=== PATIENT | female | born 1980 | race Caucasian/White ===

== ENCOUNTER 2020-06-16 00:34 | Emergency (ER) | payer OTHER ==
[~2020-06-16] VITALS: Ht 165.1 cm; Wt 84.1 kg
[2020-06-16] MEDS ORDERED: MORPHINE SULFATE 10 MG/ML SYRINGE. SQ ONE (01:30)
--- NOTE | 2020-06-16 01:33 | PHYS DOC ---
Past History Past Medical History: Hypothyroid, Migraines, Other Additional Past Medical Histor: Eduar disease Past Surgical History: , Other Additional Past Surgical Histo: uterine ablation Alcohol Use: Occasionally General Adult EDM: Chief Complaint: FOOT INJURY PAIN HPI: HPI: "..I really don't know what happened.. I was carrying a basket of laundry... And tripped or something... It was on the ground and his left foot was really hurting bad... 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 Pt.complaints of injury right. hand and lt lower leg and foot. Patient has obvious ecchymosis and swelling to left foot and ankle. Pain and left midfoot. Some laxity on anterior draw. Distal capillary refill is equal to right foot. Patient has a contusion to right hand. Patient denies other injury. Patient is normally healthy. 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 No recent travel. Review of Systems: Review of Systems: Constitutional: Denies fever or chills Eyes: Denies change in visual acuity HENT: Denies nasal congestion or sore throat Respiratory: Denies cough or shortness of breath Cardiovascular: Denies chest pain or edema GI: Denies abdominal pain, nausea, vomiting, bloody stools or diarrhea : Denies dysuria Musculoskeletal: Complains of right hand and left foot and ankle pain Integument: Denies rash Neurologic: Denies headache, focal weakness or sensory changes Endocrine: Denies polyuria or polydipsia Lymphatic: Denies swollen glands Psychiatric: Denies depression or anxiety Family History: Family History: Noncontributory to presentation Current Medications: Current Meds: Current Medications Medications (Trade) Dose Ordered Sig/C[place]etano Start Time Stop Time Status Last Admin Dose Admin Morphine Sulfate (Morphine 10mg Syringe) 10 mg 1X ONCE 06/16/20 01:30 06/16/20 01:31 06/16/20 01:22 10 MG Allergies: Allergies: Allergies Coded Allergies Type Severity Reaction Last Updated Verified No Known Drug Allergies 06/16/20 No Physical Exam: PE: Constitutional: Well developed, well nourished, moderate acute distress, non- toxic appearance. [] HENT: Normocephalic, atraumatic, bilateral external ears normal, oropharynx moist, no oral exudates, nose normal. [] Eyes: PERRLA, EOMI, conjunctiva normal, no discharge. [] Neck: Normal range of motion, no tenderness, supple, no stridor. [] Cardiovascular:Heart rate regular rhythm, no murmur [] Lungs & Thorax: Bilateral breath sounds clear to auscultation [] Abdomen: Bowel sounds normal, soft, no tenderness, no masses, no pulsatile masses. [] Skin: Warm, dry, no erythema, no rash. [] Back: No tenderness, no CVA tenderness. [] Extremities: No tenderness, no cyanosis, no clubbing, ROM intact, no edema. Except findings of ecchymosis in right hand swelling. Except findings and left ankle and foot as per HPI Neurologic: Alert and oriented X 3, normal motor function, normal sensory function, no focal deficits noted. [] Psychologic: Affect anxious, judgement normal, mood normal. [] Current Patient Data: Vital Signs: Vital Signs Date Time Temp Pulse Resp B/P (MAP) Pulse Ox O2 Delivery O2 Flow Rate FiO2 06/16/20 01:22 18 Room Air 06/16/20 00:35 97.8 71 148/76 (100 100 EKG: EKG: [] Radiology/Procedures: Radiology/Procedures: [][place] [address] IMAGING REPORT Signed PATIENT: NICOLE VILA ACCOUNT: [id number] : 1980 LOCATION: ER AGE: 40 SEX: F EXAM STATUS: PRE ER ORD. PHYSICIAN: CAL PRICE MD REASON: Injury from fall on stairs, left lower leg, ankle and foot pain PROCEDURE: TIBIA FIBULA LEFT Left tibia fibula AP lateral x-rays HISTORY: Fall, left leg pain. FINDINGS: No fracture. No dislocation. No lytic or sclerotic bone lesion. Soft tissues unremarkable. IMPRESSION: Normal exam of the left tibia fibula. Left ankle x-rays 3 views HISTORY: Fall, left ankle pain. FINDINGS: Small cortical irregularity of the lateral talus on the AP view may represent small acute fracture fractures. Ankle mortise intact. No dislocation. No talus osteochondral lesion. IMPRESSION: Acute traumatic small cortical chip fractures of the lateral talus. Left foot x-rays 3 views HISTORY: Fall, left foot pain. FINDINGS: Cortical regularity of the lateral cortex of the anterior talus adjacent to cuboid may be small acute traumatic fractures on the AP view. Remainder of the foot is intact. No dislocation. Dorsal forefoot soft tissue edema. IMPRESSION: Small acute traumatic chip fractures of the lateral cortex of the anterior talus. Otherwise the foot is intact. Electronically signed by: Roddy Hylton MD (06/16/2020 1:47 AM) [place] DICTATED AND SIGNED BY: RODDY HYLTON MD DATE: 06/16/20 0143 CC: SHRUTI RODRIGEZ MD; CAL PRICE MD ~MTH0 0 Heart Score: Risk Factors: Risk Factors: DM, Current or recent (<one month) smoker, HTN, HLP, family history of CAD, obesity. Risk Scores: Score 0 - 3: 2.5% MACE over next 6 weeks - Discharge Home Score 4 - 6: 20.3% MACE over next 6 weeks - Admit for Clinical Observation Score 7 - 10: 72.7% MACE over next 6 weeks - Early Invasive Strategies Course & Med Decision Making: Course & Med Decision Making Pertinent Labs and Imaging studies reviewed. (See chart for details) Ice, splint, crutches, elevation, and Tylenol and ibuprofen for pain. Follow-up primary care. Marked pain may take Vicoprofen. Follow-up with orthopedics [facility] [phone] Currently no crutches available prescription written Impression: 1. Ankle and Foot sprain Lt. 2. Avulsion fx Lt.Talus 3. Contusion right hand. [] Dragon Disclaimer: Dragon Disclaimer: This electronic medical record was generated, in whole or in part, using a voice recognition dictation system. Departure Departure: Referrals: SHRUTI RODRIGEZ MD (PCP) Scripts Hydrocodone/Ibuprofen (HYDROCODONE-IBUPROFEN 7.5-200 ) 1 Each Tablet 1 TAB PO PRN Q6HRS PRN for PAIN, #30 TAB 0 Refills Prov: CAL PRICE MD 06/16/20 Dragon Disclaimer This chart was dictated in whole or in part using Voice Recognition software in a busy, high-work load, and often noisy Emergency Department environment. It may contain unintended and wholly unrecognized errors or omissions. CAL PRICE MD Jun 16, 2020 01:33
--- NOTE | 2020-06-16 01:50 | RAD ---
Left tibia fibula AP lateral x-rays HISTORY: Fall, left leg pain. FINDINGS: No fracture. No dislocation. No lytic or sclerotic bone lesion. Soft tissues unremarkable. IMPRESSION: Normal exam of the left tibia fibula. Left ankle x-rays 3 views HISTORY: Fall, left ankle pain. FINDINGS: Small cortical irregularity of the lateral talus on the AP view may represent small acute f racture fractures. Ankle mortise intact. No dislocation. No talus osteochondral lesion. IMPRESSION: Acute traumatic small cortical chip fractures of the lateral talus. Left foot x-rays 3 views HISTORY: Fall, left foot pain. FINDINGS: Cortical regularity of the lateral cortex of the anterior talus adjacent to cuboid may be s mall acute traumatic fractures on the AP view. Remainder of the foot is intact. No dislocation. Dorsa l forefoot soft tissue edema. IMPRESSION: Small acute traumatic chip fractures of the lateral cortex of the anterior talus. Otherwi se the foot is intact. Electronically signed by: Alfredo Hylton MD (06/16/2020 1:47 AM) [facility]
[2020-06-16] MEDS ORDERED: HYDR-1179 PO (02:02)
[2020-06-16 02:55] VITALS: BP 134/68
== END 2020-06-16 02:58 | disposition home or self-care (01) ==
LOC: ER 00:34
DX: S92.152A Displaced avulsion fracture (chip fracture) of left talus, initial encounter for closed fracture (principal); S93.602A Unspecified sprain of left foot, initial encounter; S93.402A Sprain of unspecified ligament of left ankle, initial encounter; S60.221A Contusion of right hand, initial encounter; E03.9 Hypothyroidism, unspecified; G43.909 Migraine, unspecified, not intractable, without status migrainosus; W01.0XXA Fall on same level from slipping, tripping and stumbling without subsequent striking against object, initial encounter; Y93.89 Activity, other specified; Y92.89 Other specified places as the place of occurrence of the external cause; Y99.8 Other external cause status
CPT/HCPCS: 29515; 73590; 73610; 73630; 99284; J2270

== ENCOUNTER → 2020-07-26 | Outpatient (CLI) | payer OTHER ==
[~2020-07-26] MED LIST: HYDR-1179 PO
--- NOTE | 2020-07-26 17:47 | RAD ---
PROCEDURE: XR FOOT_LEFT 3 VIEWS STUDY DATE: 07/26/2020 CLINICAL INDICATION / HISTORY: Reason: LEFT FOOT PAIN / Spl. Instructions: / History: . TECHNIQUE: AP, lateral and oblique views of the left foot. COMPARISON: None FINDINGS: No fracture or dislocation is identified. Previously reported tiny acute chip fracture of t he lateral talus is not as apparent on this examination and may have since healed. The bone density i s normal. The joint space widths are maintained, and there are no erosions to suggest an inflammatory arthropathy. No soft tissue abnormality is seen. IMPRESSION: No acute osseous abnormality. Electronically signed by: Joan Diaz MD (07/26/2020 5:45 PM) [id number]
== END ==
LOC: DXRAD 13:32
PROVIDERS: ATTEND Physician Assistant
DX: M79.672 Pain in left foot (principal)
CPT/HCPCS: 73630

== ENCOUNTER → 2020-08-26 | Outpatient (CLI) | payer OTHER ==
--- NOTE | 2020-08-27 08:41 | RAD ---
XR FOOT_LEFT 3 VIEWS History: Reason: follow up for left foot fractures / Spl. Instructions: / History: Technique: 3 views left foot Comparison: July 26, 2020 Findings: Normal alignment. Slight irregularity along the lateral talus is unchanged. No acute fracture. Tiny p lantar calcaneal spur. Soft tissues unremarkable. Impression: 1. Unchanged irregularity along the lateral talus. No acute fracture. Electronically signed by: Taj Martinez DO (08/27/2020 8:38 AM) [id number]
== END ==
LOC: RAD 14:02
PROVIDERS: ATTEND Physician Assistant
DX: M84.375A Stress fracture, left foot, initial encounter for fracture (principal); X58.XXXA Exposure to other specified factors, initial encounter; Y93.89 Activity, other specified; Y92.89 Other specified places as the place of occurrence of the external cause; Y99.8 Other external cause status
CPT/HCPCS: 73630

== ENCOUNTER → 2020-10-07 | Outpatient (CLI) | payer OTHER ==
--- NOTE | 2020-10-15 16:44 | RAD ---
DATE: 10/07/2020 EXAM: DIGITAL SCREEN BILAT W/CAD HISTORY: Screening COMPARISON: None. Baseline exam. This study was interpreted with the benefit of Computerized Aided Detection (CAD). Breast Density: HETERO The breast parenchyma is heterogenously dense, which could reduce sensitivity of mammography. Breast parenchyma level C. FINDINGS: No mass, suspicious calcification, or architectural distortion in either breast. IMPRESSION: No evidence of malignancy. BI-RADS CATEGORY: 1 NEGATIVE RECOMMENDED FOLLOW-UP: 12M 12 MONTH FOLLOW-UP PQRS compliance statement: Patient information was entered into a reminder system with a target due date for the next mammogram. Mammography is a sensitive method for finding small breast cancers, but it does not detect them all and is not a substitute for careful clinical examination. A negative mammogram does not negate a clinically suspicious finding and should not result in delay in biopsying a clinically suspicious abnormality. "Our facility is accredited by the [employer] Mammography Program."
== END ==
LOC: MAMMO 09:43
PROVIDERS: ATTEND Obstetrics & Gynecology
DX: Z12.31 Encounter for screening mammogram for malignant neoplasm of breast (principal)
CPT/HCPCS: 77067